=== PATIENT | female | born 1950 | race Caucasian/White ===

== ENCOUNTER 2018-03-23 18:54 | Observation (INO) | payer MEDICARE ==
[~2018-03-23] VITALS: Ht 152.4 cm; Wt 54.8 kg
[2018-03-23] MEDS ORDERED: LATA2.5D3 RIGHTEYE (19:40)
[2018-03-23] MEDS ORDERED: AMLO5TAB2 PO ×2 (19:40→20:58)
[2018-03-23] MEDS ORDERED: TIMO5DRO28 EACHEYE (19:40)
[2018-03-23] MEDS ORDERED: LEVO100T5 PO (19:40)
[2018-03-23] MEDS ORDERED: LOSA100T6 PO (19:40)
[2018-03-23 19:46] LABS: BASOPHILS # (AUTO) 0.04 x10^3/uL (0-0.1); BASOPHILS % (AUTO) 1 % (0-1); EOSINOPHILS # (AUTO) 0.05 x10^3/uL (0-0.4); EOSINOPHILS % (AUTO) 1 % (1-7); LYMPHOCYTES # (AUTO) 2.68 x10^3/uL (1-3.4); LYMPHOCYTES % (AUTO) 33 % (22-44); MD NO; MEAN CORPUSCULAR HEMOGLOBIN 31.6 pg (27.0-34.8); MEAN CORPUSCULAR HGB CONC 34.6 g/dL (32.4-35.8); MEAN CORPUSCULAR VOLUME 91.5 fL (80-100); MEAN PLATELET VOLUME 8.9 fL (7.4-10.4); MONOCYTES # (AUTO) 0.36 x10^3/uL (0.2-0.8); MONOCYTES % (AUTO) 5 % (2-9); NEUTROPHILS % (AUTO) 61 % (42-75); PLATELET COUNT 266 x10^3/uL (130-400); RED BLOOD COUNT 4.75 x10^6/uL (3.82-5.3); RED CELL DISTRIBUTION WIDTH 14.2 % (9.6-15.2)
[2018-03-23 19:58] LABS: CHLORIDE 107 mmol/L (98-107)
[2018-03-23 19:59] LABS: ALANINE AMINOTRANSFERASE 30 U/L (12-78); ANION GAP 9 mmol/L (5-15); CALCIUM 9.3 mg/dL (8.5-10.1); CREATININE 0.76 mg/dL (0.55-1.02)
[2018-03-23 20:01] LABS: INTERNATIONAL NORMALIZED RATIO 0.9 (0.93-1.1); PROTHROMBIN TIME 9.4 Seconds (9.6-11.5)
[2018-03-23 20:03] LABS: ALKALINE PHOSPHATASE 76 U/L (45-117); BILIRUBIN,TOTAL 0.4 mg/dL (0.2-1.0); TOTAL PROTEIN 7.1 g/dL (6.4-8.2); TROPONIN I < 0.015 ng/mL (0.000-0.045)
[2018-03-23] MEDS ORDERED: NITROGLYCERIN OINT 2%, 1GM TP ONE ×2 (20:47→21:00)
[2018-03-23] MEDS ORDERED: LATA5DRO LEFTEYE (20:57)
[2018-03-23] MEDS ORDERED: LOTE5DRO2 LEFTEYE (20:57)
[2018-03-23] MEDS ORDERED: NETA2.5D LEFTEYE (20:57)
[2018-03-23] MEDS ORDERED: SODIUM CHLORIDE 0.9% 1,000 ML IV SCH (21:09)
[2018-03-23] MEDS ORDERED: ACETAMINOPHEN 325 MG TABLET PO PRN (21:30)
[2018-03-23] MEDS ORDERED: hydrALAzine 20 MG/ML, 1ML IVPush PRN (21:30)
[2018-03-23] MEDS ORDERED: LATANOPROSTENE BUNOD LEFTEYE SCH (21:30)
[2018-03-23] MEDS ORDERED: LATANOPROST OPHTH 0.005%, 2.5ML RIGHTEYE SCH (21:30)
[2018-03-23] MEDS ORDERED: ONDANSETRON 2MG/ML, 2ML IVPush PRN (21:30)
[2018-03-23] MEDS ORDERED: POLYETHYLENE GLYCOL 17 GM PACKET PO PRN (21:30)
[2018-03-23] MEDS ORDERED: AMLODIPINE 5 MG TABLET PO SCH (21:30)
[2018-03-23] MEDS ORDERED: LOTEPREDNOL ETABONATE LEFTEYE SCH (21:30)
[2018-03-23] MEDS ORDERED: NETARSUDIL MESYLATE LEFTEYE SCH (21:30)
[2018-03-23 22:22] VITALS: BP 144/81
[2018-03-23] MEDS ORDERED: ZOLPIDEM 5MG TABLET PO PRN (23:00)
[2018-03-23 23:38] LABS: TROPONIN I < 0.015 ng/mL (0.000-0.045)
[2018-03-24 01:43] VITALS: BP 105/63
[2018-03-24 05:15] LABS: CHOLESTEROL, TOTAL 163 mg/dL (140-239); TRIGLYCERIDES 126 mg/dL (50-200); VLDL CHOLESTEROL 25 mg/dL (0-25)
[2018-03-24 05:19] LABS: CHOL/HDL RATIO 2.1; HDL CHOL % 47 % (28-40); HDL CHOLESTEROL (DIRECT) 77 mg/dL (40-60); LDL CHOLESTEROL,CALCULATED 61 mg/dL (54-169); LDL/HDL RATIO 0.8 (0.5-3.0); TROPONIN I < 0.015 ng/mL (0.000-0.045)
[2018-03-24] MEDS ORDERED: NITROGLYCERIN 0.4 MG BOTTLE (25 TABS) SL PRN (07:00)
[2018-03-24] MEDS ORDERED: ASPIRIN 325 MG TABLET PO SCH (07:00)
[2018-03-24] MEDS ORDERED: HEPARIN 5,000 UNITS/ML, 1ML SQ SCH (07:30)
[2018-03-24 08:00] VITALS: BP 122/74
[2018-03-24 08:32] VITALS: BP 122/74
[2018-03-24] MEDS ORDERED: TIMOLOL EACHEYE SCH (09:00)
[2018-03-24] MEDS ORDERED: TIMOLOL OPHTH 0.5%, 5ML EACHEYE SCH (09:00)
[2018-03-24] MEDS ORDERED: LOSARTAN 50MG TABLET PO SCH (09:00)
[2018-03-24] MEDS ORDERED: LEVOTHYROXINE 100 MCG TABLET PO SCH (09:00)
[2018-03-24 12:55] VITALS: BP 118/75
[2018-03-24] MEDS ORDERED: ASPI-515 PO (13:13)
[2018-03-24] MEDS ORDERED: ATORVASTATIN 40 MG TABLET PO SCH (21:00)
== END 2018-03-24 14:56 | disposition home or self-care (01) ==
LOC: SUATTDRO 21:08 → ED 21:27 → INTOOBSV 21:43 → EDIP 21:43 → 5SO 21:52
PROVIDERS: ADMIT Hospitalist; ATTEND Hospitalist
DX: M54.2 Cervicalgia (principal); E03.9 Hypothyroidism, unspecified; H40.9 Unspecified glaucoma; D68.8 Other specified coagulation defects; I10 Essential (primary) hypertension; Z79.82 Long term (current) use of aspirin; Z82.49 Family history of ischemic heart disease and other diseases of the circulatory system
CPT/HCPCS: 36415; 71045; 78452; 80053; 80061; 83880; 84484; 85025; 85610; 85730; 93005; 93017; 96360; 96361; 96372; 99285; A9502; C9898; G0378; J1644; J7030

== ENCOUNTER 2018-08-31 12:27 | Emergency (ER) | payer MEDICARE ==
[~2018-08-31] VITALS: Ht 152.4 cm; Wt 58.8 kg
[~2018-08-31 12:27] MED LIST: AMLO-150 PO; ASPI-515 PO; LATA2.5D3 RIGHTEYE; LATA5DRO LEFTEYE; LEVO100T5 PO; LOSA100T7 PO; LOTE5DRO2 LEFTEYE; NETA2.5D LEFTEYE; TIMO5DRO28 EACHEYE
[2018-08-31] MEDS ORDERED: ASPIRIN 81 MG TABLET CHEW PO ONE (13:00)
[2018-08-31] MEDS ORDERED: ASPIRIN 81 MG TABLET CHEW ONE (13:05)
--- NOTE | 2018-08-31 13:13 | NUR ---
HOLD ASA PER [facility] PT TOOK ASA THIS AM
[2018-08-31 13:17] LABS: BASOPHILS # (AUTO) 0.03 x10^3/uL (0-0.1); BASOPHILS % (AUTO) 0 % (0-1); EOSINOPHILS # (AUTO) 0.03 x10^3/uL (0-0.4); EOSINOPHILS % (AUTO) 0 % (1-7); LYMPHOCYTES # (AUTO) 1.75 x10^3/uL (1-3.4); LYMPHOCYTES % (AUTO) 18 % (22-44); MD NO; MEAN CORPUSCULAR HEMOGLOBIN 30.5 pg (27.0-34.8); MEAN CORPUSCULAR HGB CONC 33.9 g/dL (32.4-35.8); MEAN PLATELET VOLUME 8.4 fL (7.4-10.4); MONOCYTES # (AUTO) 0.29 x10^3/uL (0.2-0.8); MONOCYTES % (AUTO) 3 % (2-9); NEUTROPHILS # (AUTO) 7.72 x10^3/uL (1.8-6.8); NEUTROPHILS % (AUTO) 79 % (42-75); PLATELET COUNT 253 x10^3/uL (130-400); RED BLOOD COUNT 5.05 x10^6/uL (3.82-5.3)
--- NOTE | 2018-08-31 13:20 | NUR ---
RECEIVED BEDSIDE REPORT FROM KARINE HOBBS. ASSUMED PT CARE AT THIS TIME.
[2018-08-31 13:25] LABS: ANION GAP 9 mmol/L (5-15); CALCIUM 9.2 mg/dL (8.5-10.1); CHLORIDE 109 mmol/L (98-107); CREATININE 0.79 mg/dL (0.55-1.02)
--- NOTE | 2018-08-31 13:28 | NUR ---
PT OUT OF ROOM AT THIS TIME.
[2018-08-31 13:29] LABS: TROPONIN I < 0.015 ng/mL (0.000-0.045)
--- NOTE | 2018-08-31 13:34 | NUR ---
PT BACK FROM IMAGING. PT RESTING ON GURNEY. NO ACUTE DISTRESS NOTED. NO NEEDS REQUESTED AT THIS TIME.
[2018-08-31 13:35] VITALS: BP 149/77
--- NOTE | 2018-08-31 14:49 | NUR ---
Patient/Caregiver given discharge instructions and they have confirmed that they understand the instructions. Patient ambulatory with steady gait. PT LEFT WITH ALL PERSONAL BELONGINGS.
== END 2018-08-31 14:51 | disposition home or self-care (01) ==
LOC: ED 14:42
DX: S00.03XA Contusion of scalp, initial encounter (principal); R55 Syncope and collapse; R51 Headache; I10 Essential (primary) hypertension; W18.30XA Fall on same level, unspecified, initial encounter; Y93.89 Activity, other specified; Y92.009 Unspecified place in unspecified non-institutional (private) residence as the place of occurrence of the external cause; Y99.8 Other external cause status
CPT/HCPCS: 36415; 70450; 71046; 72125; 80048; 82040; 83880; 84484; 85025; 93005; 99284

== ENCOUNTER → 2018-11-20 | Outpatient (CLI) | payer MEDICARE ==
[~2018-11-20] MED LIST changes: +LOSA100T14 PO; -LOSA100T7 PO
== END | disposition home or self-care (01) ==
LOC: CFH 12:50
PROVIDERS: ATTEND Family Medicine
DX: I35.0 Nonrheumatic aortic (valve) stenosis (principal); I10 Essential (primary) hypertension
CPT/HCPCS: 93306

== ENCOUNTER → 2020-03-04 | Outpatient (CLI) | payer MEDICARE ==
[~2020-03-04] MED LIST changes: +ATRO10DR RIGHTEYE; +CALC1CAP8 PO; +CHOL100012 PO; +CYAN1TAB29 PO; +LATA2.5D3 EACHEYE; -LATA2.5D3 RIGHTEYE; +LEVO112T4 PO; +LOSA50TA14 PO; +MULT-709 PO; +PRED5DRO20 EACHEYE; +VIT1CAPS42 PO; +ZOLP-413 PO
[2020-03-04 15:20] LABS: ANION GAP 4 mmol/L (5-15); CALCIUM 9.8 mg/dL (8.5-10.1); CHLORIDE 108 mmol/L (98-107)
[2020-03-04 15:24] LABS: ALANINE AMINOTRANSFERASE 29 U/L (12-78); ALKALINE PHOSPHATASE 72 U/L (45-117); BILIRUBIN,TOTAL 0.6 mg/dL (0.2-1.0); CREATININE 0.64 mg/dL (0.55-1.02); TOTAL PROTEIN 7.2 g/dL (6.4-8.2)
== END | disposition home or self-care (01) ==
LOC: STAR 13:05
PROVIDERS: ATTEND Internal Medicine Geriatric Medicine
DX: Z01.818 Encounter for other preprocedural examination (principal); K63.5 Polyp of colon; R94.31 Abnormal electrocardiogram [ECG] [EKG]
CPT/HCPCS: 36415; 80053; 93005

== ENCOUNTER 2020-03-10 06:31 | Day surgery (SDC) | payer MEDICARE ==
[~2020-03-10] VITALS: Ht 149.9 cm; Wt 55.9 kg
[2020-03-10] MEDS ORDERED: LACTATED RINGERS 1,000 ML IV SCH (07:13)
[2020-03-10] MEDS ORDERED: CLON0.1T22 PO (07:19)
[2020-03-10] MEDS ORDERED: CHLORHEXIDINE 15 ML UDC ONE (07:25)
[2020-03-10] MEDS ORDERED: LIDOCAINE-MPF 1%, 2ML INFIL ONE (07:30)
[2020-03-10] MEDS ORDERED: CHLORHEXIDINE 15 ML UDC MM ONE (07:30)
[2020-03-10 07:36] VITALS: BP 115/72
[2020-03-10] MEDS ORDERED: PROPOFOL 10 MG/ML, 100ML IV ONE (09:15)
[2020-03-10] MEDS ORDERED: ONDANSETRON 2MG/ML, 2ML ONE (09:15)
[2020-03-10] MEDS ORDERED: HYDROmorphone 1 MG/ML, 1ML INJ IVPush PRN (09:30)
[2020-03-10] MEDS ORDERED: LABETALOL 5MG/ML, 20ML IV PRN (09:30)
[2020-03-10] MEDS ORDERED: OXYcodone 5 MG/5 ML ORAL.SOL UDC PO PRN (09:30)
[2020-03-10] MEDS ORDERED: DIAZEPAM 5 MG/ML, 2ML IVPush PRN (09:30)
[2020-03-10] MEDS ORDERED: PROMETHAZINE 25 MG/ML, 1ML IV PRN (09:30)
[2020-03-10] MEDS ORDERED: ACETAMINOPHEN 325 MG TABLET PO PRN (09:30)
[2020-03-10] MEDS ORDERED: KETOROLAC 30 MG/1 ML IV PRN (09:30)
[2020-03-10] MEDS ORDERED: ALBUTEROL SULFATE 2.5 MG/3 ML NPPB PRN (09:30)
[2020-03-10] MEDS ORDERED: FENTANYL PF 100 MCG/2ML IV PRN (09:30)
[2020-03-10] MEDS ORDERED: MEPERIDINE/PF 25MG/0.5ML IVPush PRN (09:30)
[2020-03-10] MEDS ORDERED: hydrALAzine 20 MG/ML, 1ML IV PRN (09:30)
== END 2020-03-10 12:40 | disposition home or self-care (01) ==
LOC: OUT 06:31
PROVIDERS: ATTEND Internal Medicine Geriatric Medicine
DX: D12.3 Benign neoplasm of transverse colon (principal); Z11.59 Encounter for screening for other viral diseases; I10 Essential (primary) hypertension; Z79.890 Hormone replacement therapy; Z79.899 Other long term (current) drug therapy; Z88.8 Allergy status to other drugs, medicaments and biological substances
CPT/HCPCS: 36415; 45380; 45381; 45385; 87635; 88305; J2405; J2704; J7120

== ENCOUNTER 2021-01-10 20:23 | Emergency (ER) | payer MEDICARE ==
[~2021-01-10] VITALS: Ht 152.4 cm; Wt 55.1 kg
[~2021-01-10 20:23] MED LIST changes: -ASPI-515 PO; +ASPI-963 PO; +CLON0.1T22 PO; -LATA2.5D3 EACHEYE; +LATA2.5D4 EACHEYE
[2021-01-10 21:17] VITALS: BP 151/81
== END 2021-01-10 21:26 | disposition home or self-care (01) ==
LOC: ED 20:45
DX: I10 Essential (primary) hypertension (principal); Z76.0 Encounter for issue of repeat prescription; Z86.39 Personal history of other endocrine, nutritional and metabolic disease; R94.31 Abnormal electrocardiogram [ECG] [EKG]
CPT/HCPCS: 93005; 99283

== ENCOUNTER → 2021-01-21 | Outpatient (CLI) | payer MEDICARE | END | disposition home or self-care (01) | LOC: CFH 09:53 | PROVIDERS: ATTEND Internal Medicine Cardiovascular Disease | DX: I10 Essential (primary) hypertension (principal); Z87.891 Personal history of nicotine dependence | CPT/HCPCS: 93306 ==